=== PATIENT | male | born 1950 | race Caucasian/White ===

== ENCOUNTER 2023-04-09 11:14 | Outpatient (REF) | payer SELFPAY | END 2023-04-09 11:15 | disposition home or self-care (01) | LOC: HO.HAP 11:14 | PROVIDERS: Visit Provider Internal Medicine | DX: Z46.1 Encounter for fitting and adjustment of hearing aid (principal); H90.3 Sensorineural hearing loss, bilateral | CPT/HCPCS: 92593 ==